=== PATIENT | female | born 2000 | race Caucasian/White ===

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

== ENCOUNTER 2023-11-09 18:33 | Emergency (ER) | payer MEDICAID ==
[~2023-11-09] VITALS: Ht 167.6 cm; Wt 59.0 kg
[2023-11-09 21:47] LABS: HEMATOCRIT. 43.5 % (36.0-48.0); MEAN CORPUSCULAR HEMOGLOBIN 31.5 pg (28.0-32.0); MEAN CORPUSCULAR HGB CONC 34.4 g/dL (31.0-37.0); MEAN CORPUSCULAR VOLUME 91.7 fL (81.0-99.0); MEAN PLATELET VOLUME 7.3 fl (7.4-10.4); PLATELET 318 x1000/uL (130-400); RED BLOOD CELL COUNT 4.74 mill/uL (4.2-5.4); RED CELL DISTRIBUTION WIDTH 13.9 % (11.6-14.6); WHITE BLOOD COUNT 12.6 x1000/uL (4.5-11.0)
[2023-11-09 21:51] LABS: DIFFERENTIAL COMMENT 1
[2023-11-09 22:05] LABS: ALANINE AMINOTRANSFERASE 135 IU/L (10-49); ALBUMIN 4.2 g/dL (3.2-4.8); ASPARTATE AMINOTRANSFERASE 74 IU/L (<34); BILIRUBIN TOTAL 1.1 mg/dL (0.1-1.0); CALCIUM 9.1 mg/dL (8.7-10.4); CARBON DIOXIDE 20 mEq/L (21-32); CHLORIDE 104 mEq/L (98-107); CREATININE 0.6 mg/dL (0.6-1.0); GLUCOSE 108 mg/dL (70-105); POTASSIUM 3.4 mEq/L (3.5-5.1); PROTEIN TOTAL 7.3 g/dL (6.0-8.3); SODIUM 137 mEq/L (136-145); UREA NITROGEN BLOOD 15 mg/dL (9-23)
[2023-11-09 22:19] LABS: PLATELET ESTIMATE NORMAL
[2023-11-09 22:24] LABS: HCG SCREEN NEGATIVE
[2023-11-09 22:53] LABS: CLARITY URINE CLOUDY (CLEAR); COLOR URINE DARK YELLOW (YELLOW); GLUCOSE URINE NEGATIVE (NEGATIVE); KETONES URINE 4+ (NEGATIVE); LEUKOCYTE ESTERASE URINE TRACE (NEGATIVE); NITRITE URINE NEGATIVE (NEGATIVE); OCCULT BLOOD URINE NEGATIVE (NEGATIVE); PH URINE 7.5 (4.5-8.0); PROTEIN URINE 1+ (NEGATIVE); SPECIFIC GRAVITY URINE 1.036 (1.005-1.030)
[2023-11-09 23:10] LABS: BACTERIA URINE 1+; RBC URINE NONE SEEN /hpf (0-2); SQUAMOUS EPITHELIAL CELL URINE 2+ /lpf (RARE/1+); WBC URINE 0-2 /hpf (0-2)
[2023-11-09] MEDS ORDERED: ONDANSETRON HCL 4MG/2ML INJ IV STA (23:45)
[2023-11-09] MEDS ORDERED: FAMOTIDINE 20MG/2ML VIAL IV STA (23:45)
[2023-11-09] MEDS ORDERED: SODIUM CHLORIDE 0.9% 1,000 ML IV ONE (23:45)
[2023-11-10] MEDS ORDERED: KETOROLAC 15MG/ML VIAL IV ONE
[2023-11-10] MEDS ORDERED: KETOROLAC 15MG/ML VIAL IV NR (02:30)
[2023-11-10] MEDS ORDERED: ONDANSETRON HCL 4MG/2ML INJ IV NR (02:30)
[2023-11-10] MEDS ORDERED: FAMOTIDINE 20MG/2ML VIAL IV NR (02:30)
[2023-11-10 04:06] VITALS: BP 130/75; PULSE 111; RESP 17; TEMP 97.8; O2SAT 100
[2023-11-10] MEDS ORDERED: ONDA4TAB50 MT (04:41)
== END 2023-11-10 05:40 | disposition home or self-care (01) ==
LOC: ER 18:33
DX: R11.2 Nausea with vomiting, unspecified (principal); K52.89 Other specified noninfective gastroenteritis and colitis; Z88.8 Allergy status to other drugs, medicaments and biological substances
CPT/HCPCS: 80053; 81003; 84703; 83690; 85025; 36415; 99285; 96361; 96374; 96375; J7030; J3490; J1885; J2405; Z7610 ×4

== ENCOUNTER 2024-11-26 17:57 | Emergency (ER) | payer MEDICAID ==
[~2024-11-26] VITALS: Ht 162.6 cm; Wt 58.0 kg
[~2024-11-26 17:57] MED LIST: ONDA4TAB50 MT
[2024-11-26 18:05] VITALS: O2SAT 100
[2024-11-26 19:06] LABS: COLOR URINE YELLOW (YELLOW); SPECIFIC GRAVITY URINE 1.025 (1.005-1.030)
[2024-11-26 19:07] LABS: GLUCOSE URINE NEGATIVE (NEGATIVE); KETONES URINE NEGATIVE (NEGATIVE); LEUKOCYTE ESTERASE URINE NEGATIVE (NEGATIVE); NITRITE URINE NEGATIVE (NEGATIVE); OCCULT BLOOD URINE TRACE (NEGATIVE); PROTEIN URINE NEGATIVE (NEGATIVE); UROBILINOGEN URINE 0.2 E.U./dL (0.2-1.0)
[2024-11-26 19:08] LABS: CLARITY URINE CLOUDY (CLEAR)
[2024-11-26 19:12] LABS: BACTERIA URINE 2+; RBC URINE 0-2 /hpf (0-2); SQUAMOUS EPITHELIAL CELL URINE 2+ /lpf (RARE/1+); WBC URINE 0-2 /hpf (0-2)
[2024-11-26 20:16] VITALS: BP 102/63; PULSE 88; RESP 16; TEMP 37.4; O2SAT 97
[2024-11-26 21:58] LABS: HEMATOCRIT 39.8 % (36.0-48.0); HEMOGLOBIN 13.9 g/dL (12.0-16.0); MEAN CORPUSCULAR HEMOGLOBIN 32.1 pg (28.0-32.0); MEAN CORPUSCULAR HGB CONC 34.9 g/dL (31.0-37.0); MEAN CORPUSCULAR VOLUME 92.2 fL (81.0-99.0); PLATELET 274 x1000/uL (130-400); RED BLOOD CELL COUNT 4.32 mill/uL (4.2-5.4); RED CELL DISTRIBUTION WIDTH 14.1 % (11.6-14.6); WHITE BLOOD COUNT 6.4 x1000/uL (4.5-11.0)
[2024-11-26 22:06] LABS: CHLORIDE 108 mEq/L (98-107); POTASSIUM 4.3 mEq/L (3.5-5.1); SODIUM 139 mEq/L (136-145)
[2024-11-26 22:07] LABS: CALCIUM 9.2 mg/dL (8.7-10.4); CARBON DIOXIDE 27 mEq/L (21-32)
[2024-11-26 22:12] LABS: CREATININE 0.6 mg/dL (0.6-1.0); GLUCOSE 98 mg/dL (70-105)
[2024-11-26 22:13] LABS: UREA NITROGEN BLOOD 12 mg/dL (9-23)
[2024-11-26 22:14] LABS: ALANINE AMINOTRANSFERASE 86 IU/L (10-49); ASPARTATE AMINOTRANSFERASE 60 IU/L (<34)
[2024-11-26 22:15] LABS: BILIRUBIN TOTAL 0.3 mg/dL (0.1-1.0); HCG SCREEN NEGATIVE; PROTEIN TOTAL 6.7 g/dL (6.0-8.3)
== END 2024-11-27 02:20 | disposition home or self-care (01) ==
LOC: ER 17:57
DX: M54.50 Low back pain, unspecified (principal)
CPT/HCPCS: 36415; 74176; 76830; 76856; 80053; 81003; 81025; 84703; 85027; 99284